=== PATIENT | female | born 1970 | race Caucasian/White ===

== ENCOUNTER → 2020-04-06 | Outpatient (CLI) | payer MEDICARE, MEDICAID ==
[~2020-04-06] VITALS: Ht 156.2 cm; Wt 127.5 kg
[~2020-04-06] MED LIST: A & D OINT TUBE60 GM TOP; CLONAZEPAM PO; DESYREL; ESCITALOPRAM; INDERAL 20MG20 MG PO; LASIX 40MG TABL40 MG PO; LEXAPRO20 MG PO; LITHIUM 30300 MG/CAP PO; LUNESTA3 MG PO; LYRICA200 MG PO; MYRBETR50MG PO; NATURAL IRON65 MG; REQUIP 1MG T1 MG/TAB PO; SYNTHROID0.088 MG/T PO; TROKEND100 PO
[2020-04-06 13:12] VITALS: BP 116/76; PULSE 68
== END ==
LOC: LIGHT
DX: E66.01 Morbid (severe) obesity due to excess calories (principal); Z68.43 Body mass index [BMI] 50.0-59.9, adult; Z98.84 Bariatric surgery status
CPT/HCPCS: G0463